=== PATIENT | male | born 1945 | race Caucasian/White ===

== ENCOUNTER → 2017-03-30 | Outpatient (CLI) | payer OTHER ==
--- NOTE | 2017-03-31 08:26 | PCVCIMAG ---
APPROVED REPORT Study performed: 03/30/2017 14:24:58 EXAM: Comprehensive 2D, Doppler, and color-flow Echocardiogram Patient Location: Echo lab Status: routine BSA: 2.19 HR: 63 bpmBP: 122/80 mmHg Rhythm: NSR Other Information Study Quality: Good Indications Dyspnea Hypertension/HDD Hyperlipidemia. Family History CAD 2D Dimensions LVEF(%): 88.19 (>50%) IVSd: 7.78 (7-11mm)LVOT Diam: 20.27 (18-24mm) LVDd: 41.32 mm PWd: 13.04 (7-11mm) LVDs: 17.42 (25-40mm) Left Atrium: 38.24 (27-40mm) Aortic Root: 27.54 mm LV Single Plane 4CH: 48.09 % LV Single Plane 2CH: 71.52 %Guevara's LVEF: 59.81 % Biplane EF: 62.1 % Volumes Left Atrial Volume (Systole) Single Plane 4CH: 58.91 mLSingle Plane 2CH: 35.94 mL LA ESV Index: 20.00 mL/m2 Aortic Valve AoV Peak Mayo.: 1.34 m/s AO Peak Gr.: 7.13 mmHg Mitral Valve E/A Ratio: 0.6 MV Decel. Time: 154.70 ms MV E Max Mayo.: 0.64 m/s MV A Mayo.: 1.06 m/s IVRT: 124.57 ms TDI E/Lateral E': 8.00E/Medial E': 10.67 Medial E' Mayo.: 0.06 m/s Lateral E' Mayo.: 0.08 m/s Pulmonary Valve PV Peak Gr.: 2.82 mmHg Pulmonary Vein P Vein S: 0.66 m/sP Vein A: 0.37 m/s P Vein D: 0.61 m/sP Vein A Dur.: 62.3 msec P Vein S/D Ratio: 1.08 Left Ventricle The left ventricle is normal size. There is normal LV segmental wall motion. There is normal left ventricular wall thickness. Left ventricular systolic function is normal. The left ventricular ejection fraction is within the normal range. LVEF is 60-65%. Grade I - abnormal relaxation pattern. Right Ventricle The right ventricle is normal size. The right ventricular systolic function is normal. Atria The left atrium size is normal. The right atrium size is normal. Aortic Valve The aortic valve is normal in structure. No aortic regurgitation is present. There is no aortic valvular stenosis. Mitral Valve The mitral valve is normal in structure. There is no mitral valve regurgitation noted. No evidence of mitral valve stenosis. Tricuspid Valve The tricuspid valve is normal in structure. There is no tricuspid valve regurgitation noted. Pulmonic Valve The pulmonary valve is normal in structure. Trace pulmonic regurgitation. Great Vessels The aortic root is normal in size. IVC is normal in size and collapses with >50% inspiration Pericardium There is no pericardial effusion. <Conclusion> Left ventricular systolic function is normal. There is normal LV segmental wall motion. LVEF is 60-65%. Grade I diastolic dysfunction The aortic valve is normal in structure. No aortic regurgitation or stenosis The mitral valve is normal in structure. No mitral valve regurgitation noted. Pulmonary artery pressure could not be reliably ascertained There is no pericardial effusion.
--- NOTE | 2017-03-31 15:28 | PCVCIMAG ---
APPROVED REPORT Patient Location: Echo lab-[facility] STRESS TEST Room #: 1 Stress Nurse: Madeleine Johns RN INDICATIONS: Dyspnea,hypertension, dyslipidemia, family history of early onset CAD The patient exercised according to the Raj Protocol for 6:21 minutes, achieving a maximum work level of 8 METS. The resting heart rate of 67 bpm, jc to a maximal level of 153 bpm. This value represents 104 % of the maximal, age-predicted heart rate. The resting blood pressure of 122/80 mmHg, jc to a maximum blood pressure of 200/80 mmHg. The exercise was stopped due to fatigue. ECG: Normal Stress electrocardiogram: No ischemic electrocardiographic changes. Rare, isolated PVC's Conclusion 1. Maximal treadmill stress test negative for ischemia. 2. This study was associated with average exercise capacity (8.0 METS)
== END | disposition home or self-care (01) ==
LOC: PCVCIMAG 12:59
PROVIDERS: ATTEND Internal Medicine
DX: I10 Essential (primary) hypertension (principal); R06.00 Dyspnea, unspecified; E78.5 Hyperlipidemia, unspecified; I65.23 Occlusion and stenosis of bilateral carotid arteries; Z82.49 Family history of ischemic heart disease and other diseases of the circulatory system
CPT/HCPCS: 93017; 93306; 93880